=== PATIENT | female | born 1945 | race Caucasian/White ===

== ENCOUNTER 2020-11-23 13:13 | Inpatient (IN) | payer OTHER, MEDICAID, SELFPAY ==
[~2020-11-23] VITALS: Ht 142.2 cm; Wt 133.4 kg
[~2020-11-23 13:13] MED LIST: ACET-8757 PO; AMLO10TA PO; ASPI-1856 PO; ATOR20TA PO; BACL10TA4 PO; BENA5TAB7 PO; BUME1TAB PO; CARV12.52 PO; DIT5 PO; FERR-21 PO; GABA800T6 PO; GLIP1TAB40 PO; INSU10SU6 SUBQ; METO10TA PO; MULT-2112 PO; PAX20 PO; POTA8CAP4 PO; RIVA15TA1 PO; TRAZ-343 PO
[2020-11-23 13:19] VITALS: BP 138/75
--- NOTE | 2020-11-23 14:35 | NUR ---
75 Y/O F BIB DAUGHTER FROM HOME, PATIENT PRESENTS TO ED WITH ABD PAIN FOR 1 YEAR WITH DARK RED BLOOD IN STOOL THIS MORNING. PT DAUGHTER STATES SHE WAS INFORMED BY HER PCP TO COME TO ER FOR "INTERNAL BLEEDING". DENIES N/V/D; SKIN IS PINK/WARM/DRY; AAOX2 UNABLE TO AMBULATE, BOWEL SOUNDS X3 NORMOACTIVE IN RLQ, RUQ AND LUQ, HYPOACTIVE IN LLQ; LUNGS CLEAR BL; HR EVEN AND REGULAR; PT DENIES ANY FEVER, CP, SOB, OR COUGH AT THIS TIME; PATIENT STATES NO PAIN AT THIS TIME; VSS; PATIENT POSITIONED FOR COMFORT; HOB ELEVATED; BEDRAILS UP X2; BED DOWN. ER MD MADE AWARE OF PT STATUS. PMH: DM2, HTN, HYPERLIPIDEMIA ALLERGY: "YELLOW DYE", COMPAZINE, PENICILLIN MED: COMPLIANT, DAUGHTER HAS LIST OF MEDICATIONS.
[2020-11-23 16:05] LABS: BASOPHILS # (AUTO) 0.3 K/uL (0.00-0.22); BASOPHILS % (AUTO) 2.7 % (0.0-2.0); EOSINOPHILS # (AUTO) 0.3 K/uL (0-0.4); EOSINOPHILS % (AUTO) 2.4 % (0.0-4.0); HEMATOCRIT 30.1 % (36-48); HEMOGLOBIN 10.1 g/dL (12.0-16.0); LYMPHOCYTES # (AUTO) 3.8 K/uL (2.5-16.5); LYMPHOCYTES % (AUTO) 34.6 % (20.5-51.1); MEAN CORPUSCULAR HEMOGLOBIN 31 pg (27-31); MEAN CORPUSCULAR HGB CONC 34 g/dL (33-37); MEAN CORPUSCULAR VOLUME 92.1 fL (80-94); MONOCYTES # (AUTO) 0.7 K/uL (0.8-1.0); MONOCYTES % (AUTO) 6.5 % (1.7-9.3); NEUTROPHILS # (AUTO) 5.9 K/uL (1.8-7.7); NEUTROPHILS % (AUTO) 53.8 % (42.2-75.2); PLATELET COUNT (AUTO) 302 K/uL (140-450); RED BLOOD CELL COUNT(AUTO) 3.27 MIL/uL (4.20-5.40); RED CELL DISTRIBUTION WIDTH 14.4 % (11.6-13.7)
[2020-11-23 16:18] LABS: ALBUMIN 3.2 g/dL (3.4-5.0); ANION GAP 7.9 (8-16); ASPARTATE AMINOTRANSFERASE 23 U/L (15-37); CARBON DIOXIDE 33.3 mmol/L (21-32); CHLORIDE 103 mmol/L (98-107); CREATININE 2.1 mg/dL (0.6-1.3); GLUCOSE 116 mg/dL (74-106); POTASSIUM 4.2 mmol/L (3.5-5.1); SODIUM SERUM 140 mmol/L (136-145); TOTAL BILIRUBIN 0.1 mg/dL (0.0-1.0); UREA NITROGEN, BLOOD 57 mg/dL (7-18)
--- NOTE | 2020-11-23 17:34 | NUR ---
PARAS WAS SWABBED AND SENT TO LAB.
[2020-11-23] MEDS ORDERED: MORPHINE SULFATE 2 MG/ML SYR IVP PRN (18:10)
[2020-11-23] MEDS ORDERED: POTASSIUM CHLORIDE 10 MEQ TABER PO PRN (18:10)
[2020-11-23] MEDS ORDERED: DOCUSATE SODIUM 100 MG GELCAP PO PRN (18:10)
[2020-11-23] MEDS ORDERED: POTASSIUM CHLORIDE 40 MEQ, LIDOCAINE MPF 1% 25 MG in NACL 0.9% 250 ML IV PRN (18:10)
[2020-11-23] MEDS ORDERED: MAG SULF 2000 MG/WATER PREMIX 50 ML IV PRN (18:10)
[2020-11-23] MEDS ORDERED: ONDANSETRON 4 MG/2 ML VIAL IM/IVP PRN (18:10)
--- NOTE | 2020-11-23 19:03 | NUR ---
URINE COLLECTED AND GIVEN TO CHRISTIAN IN LAB
--- NOTE | 2020-11-23 19:15 | NUR ---
REPORT RECIEVED FROM KEMAR MORENO FOR CONTINUITY OF CARE.
[2020-11-23 19:29] LABS: APPEARANCE,URINE CLEAR (CLEAR); BILIRUBIN,URINE NEGATIVE (NEGATIVE); BLOOD, URINE NEGATIVE (NEGATIVE); COLOR,URINE YELLOW (YELLOW); LEUKOCYTE ESTERASE ,URINE NEGATIVE (NEGATIVE); NITRITE, URINE NEGATIVE (NEGATIVE); PH,URINE 5.5 (5.0-9.0); UGLUCOSE NEGATIVE (NEGATIVE)
[2020-11-23] MEDS: PANTOPRAZOLE 40 MG INJ VIAL IVP SCH (19:30)
--- NOTE | 2020-11-23 19:45 | NUR ---
[facility] PERFORMED, NEW SHEET AND WARM BLANKET PROVIDED. DAUGHTER AT BEDSIDE FOR ASSIST.
[2020-11-23] MEDS: NACL 0.9% 1,000 ML IV SCH (19:55)
--- NOTE | 2020-11-23 20:05 | NUR ---
PT CONNECTED TO SENIOR INFORMATION SECURITY CONSULTANT. VSS AT THIS TIME.
--- NOTE | 2020-11-23 20:50 | NUR ---
CALLED KEMAR PEGUERO. REQUESTING CALL BACK IN 10 MIN D/T ADMINISTERING MEDICATIONS. WILL CALL BACK.
--- NOTE | 2020-11-23 20:59 | NUR ---
CALLED SUDHIR AGAIN X2, NO ANSWER.
--- NOTE | 2020-11-23 21:05 | NUR ---
CALLED KEMAR PEGUERO FOR ADMIT. NO ANSWER.
[2020-11-23] MEDS ORDERED: ALBUTEROL SULFATE/IPRATROPIU 3 ML SOL IH PRN (21:10)
--- NOTE | 2020-11-23 21:15 | NUR ---
PT TAKEN TO TELE 121B VIA JOSE WITH LUDWIG REINOSO AND NARESH RN. SUDHIR RN AT BEDSIDE TO RECIEVE PT.
--- NOTE | 2020-11-23 21:20 | NUR ---
ADMITPatient will be admitted to care of MD ILANA. Admited to TELE. Will go to room 121B. Belongings list completed. Report to KEMAR PEGUERO ON THE FLOOR AT BEDSIDE.
--- NOTE | 2020-11-23 22:00 | NUR ---
RECEIVED REPORT FROM BETTY RODRIGUEZ RN FOR ADMIT TO [facility] ROOM 121B. PT ARRIVED VIA GURNEY AAOX3, UNABLE TO AMBULATE, BASELINE. NO APPARENT S/S OF ACUTE DISTRESS. BREATHING EVEN AND UNLABORED ON 2L NC WITH O2 SAT OF 100%. NO C/O CP, SOB OR PAIN. L HAND 22G INTACT/PATENT. POC AND WHITE COMMUNICATION BOARD UPDATED. BED IN LOW/LOCKED POSITION. CALL LIGHT WITHIN REACH. PT ENCOURAGED TO CALL FOR ANY NEEDS/ASSISTANCE. WILL CONTINUE TO MONITOR.
[2020-11-23 23:32] VITALS: BP 134/66
[2020-11-24] VITALS: BP 133/52
[2020-11-24 04:00] VITALS: BP 143/56
[2020-11-24 06:32] LABS: BASOPHILS # (AUTO) 0.1 K/uL (0.00-0.22); BASOPHILS % (AUTO) 0.7 % (0.0-2.0); EOSINOPHILS # (AUTO) 0.3 K/uL (0-0.4); EOSINOPHILS % (AUTO) 2.5 % (0.0-4.0); HEMATOCRIT 32.6 % (36-48); HEMOGLOBIN 10.9 g/dL (12.0-16.0); LYMPHOCYTES # (AUTO) 3.8 K/uL (2.5-16.5); LYMPHOCYTES % (AUTO) 31.6 % (20.5-51.1); MEAN CORPUSCULAR HEMOGLOBIN 31 pg (27-31); MEAN CORPUSCULAR HGB CONC 33 g/dL (33-37); MONOCYTES # (AUTO) 0.9 K/uL (0.8-1.0); MONOCYTES % (AUTO) 7.8 % (1.7-9.3); NEUTROPHILS # (AUTO) 6.8 K/uL (1.8-7.7); NEUTROPHILS % (AUTO) 57.4 % (42.2-75.2); PLATELET COUNT (AUTO) 341 K/uL (140-450); RED BLOOD CELL COUNT(AUTO) 3.55 MIL/uL (4.20-5.40); RED CELL DISTRIBUTION WIDTH 14.4 % (11.6-13.7); WHITE BLOOD COUNT (AUTO) 11.9 K/uL (4.8-10.8)
--- NOTE | 2020-11-24 06:54 | NUR ---
REPORT GIVEN TO PIPO REINOSO FOR CONTINUITY OF CARE. PT SITTING UP AAO3. NO APPARENT S/S OF ACUTE DISTRESS. BREATHING EVEN AND UNLABORED. BED IN LOW/LOCKED POSITION. CALL LIGHT WITHIN REACH. ALL NEEDS MET AT THIS TIME.
[2020-11-24 07:05] LABS: ANION GAP 9.2 (8-16); CARBON DIOXIDE 31.8 mmol/L (21-32); CHLORIDE 103 mmol/L (98-107); CREATININE 1.9 mg/dL (0.6-1.3); GLUCOSE 173 mg/dL (74-106); SODIUM SERUM 140 mmol/L (136-145); UREA NITROGEN, BLOOD 51 mg/dL (7-18)
--- NOTE | 2020-11-24 08:17 | NUR ---
RCV'D PT ON ROOM AIR. SPO2 94% CLEAR BREATH SOUNDS. BIPAP AT BEDSIDE STANDBY FOR SOB. WILL CONTINUE TO MONITOR.
--- NOTE | 2020-11-24 08:59 | NUR ---
PATIENT HAS BEEN SCREENED AND CATEGORIZED MODERATE NUTRITION RISK. PATIENT WILL BE SEEN WITHIN 3-5 DAYS OF ADMISSION. 11/26/20 11/28/[address]
[2020-11-24] MEDS: BENAZEPRIL 5 MG TAB PO SCH (09:00)
[2020-11-24] MEDS: PARoxetine 20 MG TAB PO SCH (09:00)
[2020-11-24] MEDS: carvediloL 12.5 MG TAB PO SCH ×2 (09:00→20:28)
[2020-11-24] MEDS: BUMETANIDE 1 MG TAB PO SCH (09:00)
[2020-11-24] MEDS: OXYBUTYNIN 5 MG TAB PO SCH ×2 (09:00→20:28)
[2020-11-24] MEDS: metOLazone 5 MG TAB PO SCH (09:00)
[2020-11-24] MEDS: amLODIPine 5 MG TAB PO SCH (13:07)
[2020-11-24] MEDS: PANTOPRAZOLE 40 MG INJ VIAL IVP SCH (13:07)
[2020-11-24] MEDS: HYDROcodone/APAP 5/325 MG 1 TAB TAB PO PRN ×2 (13:11→16:52)
[2020-11-24] MEDS: MULTIVITAMIN/MINERALS 1 TAB PO SCH (16:56)
[2020-11-24] MEDS: NACL 0.9% 1,000 ML IV SCH (18:45)
--- NOTE | 2020-11-24 19:30 | NUR ---
RECIEVED BEDSIDE ENDORSEMENT FROM DAY SHIFT RN, PT SITTING UP ON BED RESTING, A&OX1/2, ALBE TO MAKE NEEDS KNOWN AND FOLLOWS SIMPLE COMMANDS, AFEBRILE, VSS, ON NC 2L/MIN, ABD SOFT AND NON TENDER TO TOUCH, SKIN WARM DRY AND NON INTACT/SEE WOUND ASSESSMENT, MOSHE 20 G PIV SALINE LOCKED, L ARM AV SHUNT IN PLACE, PT SHOWING NO SIGNS OF ACUTE DISTRESS, SAFETY MEASURES IN PLACE, WILL CONTINUE WITH CURRENT POC
[2020-11-24 20:00] VITALS: BP 152/78
[2020-11-24 20:10] VITALS: BP 156/82
[2020-11-24] MEDS: ATORVASTATIN 20 MG TAB PO SCH (20:28)
--- NOTE | 2020-11-24 20:29 | NUR ---
ADMINISTERED 2100H MEDICATIONS PER MD ORDERS
[2020-11-24] MEDS ORDERED: traZODone 50 MG TAB PO PRN (21:00)
[2020-11-24] MEDS ORDERED: traZODone 50 MG TAB PO SCH (21:00)
--- NOTE | 2020-11-24 23:11 | NUR ---
PT CHANGED BACK TO NC 2L/MIN, UNABLE TO TOLERATE BIPAP AND KEEPS REMOVING IT, RT AWARE AND AT BEDSIDE
--- NOTE | 2020-11-24 23:18 | NUR ---
2121 PLACED PATIENT ON BIPAP. SEE RT NOTES
--- NOTE | 2020-11-24 23:19 | NUR ---
2300 PATIENT TOOK OFF BIPAP. RN SAID PATIENT DOES NOT WANT TO WEAR IT. BIPAP IS STANDBY PATIENTS BED
[2020-11-25] VITALS: BP 149/70
--- NOTE | 2020-11-25 00:28 | NUR ---
PT APPEARS TO BE ASLEEP AND SHOWING NO SIGNS OF ACUTE DISTRESS
[2020-11-25 04:00] VITALS: BP 157/77
[2020-11-25 06:01] LABS: BASOPHILS # (AUTO) 0.1 K/uL (0.00-0.22); BASOPHILS % (AUTO) 0.6 % (0.0-2.0); EOSINOPHILS # (AUTO) 0.2 K/uL (0-0.4); EOSINOPHILS % (AUTO) 1.7 % (0.0-4.0); HEMATOCRIT 32.6 % (36-48); HEMOGLOBIN 11.1 g/dL (12.0-16.0); LYMPHOCYTES # (AUTO) 4.4 K/uL (2.5-16.5); MEAN CORPUSCULAR HEMOGLOBIN 31 pg (27-31); MEAN CORPUSCULAR HGB CONC 34 g/dL (33-37); MEAN CORPUSCULAR VOLUME 91.3 fL (80-94); MONOCYTES # (AUTO) 0.9 K/uL (0.8-1.0); MONOCYTES % (AUTO) 7.2 % (1.7-9.3); NEUTROPHILS # (AUTO) 7.3 K/uL (1.8-7.7); NEUTROPHILS % (AUTO) 56.5 % (42.2-75.2); PLATELET COUNT (AUTO) 337 K/uL (140-450); RED BLOOD CELL COUNT(AUTO) 3.57 MIL/uL (4.20-5.40); WHITE BLOOD COUNT (AUTO) 12.9 K/uL (4.8-10.8)
[2020-11-25 06:03] LABS: ANION GAP 14.1 (8-16); CARBON DIOXIDE 28.1 mmol/L (21-32); CHLORIDE 98 mmol/L (98-107); CREATININE 1.5 mg/dL (0.6-1.3); GLUCOSE 287 mg/dL (74-106); POTASSIUM 4.2 mmol/L (3.5-5.1); SODIUM SERUM 136 mmol/L (136-145); UREA NITROGEN, BLOOD 40 mg/dL (7-18)
--- NOTE | 2020-11-25 07:20 | NUR ---
RECEIVED BEDSIDE REPORT FROM [facility] HOME NURSE FOR CONTINUITY OF CARE. PT IS AWAKE AND ALERT. PERIODS OF CONFUSION NOTED. PT IS ON 2L O2 NC WITH BREATHING UNLABORED. PT IS AMBULATORY WITH ASSISTANCE. SKIN IS WARM, DRY, AND INTACT. IV IS IN THE LEFT HAND 22 GAUGE RUNNING NS AT 40 ML PER HOUR PER ORDER. PT IS STABLE AT THIS TIME. PLAN OF CARE DISCUSSED.
--- NOTE | 2020-11-25 07:29 | NUR ---
ENDORSED TO DAY SHIFT RN FOR CONTINUITY OF CARE
[2020-11-25 08:00] VITALS: BP 141/73
--- NOTE | 2020-11-25 08:59 | NUR ---
SPOKE TO THEO, DAUGHTER, AND INFORMED HER OF THE CONDITION OF THE PT. ALL QUESTIONS ANSWERED.
[2020-11-25] MEDS: PARoxetine 20 MG TAB PO SCH (09:45)
[2020-11-25] MEDS: MULTIVITAMIN/MINERALS 1 TAB PO SCH (09:46)
[2020-11-25] MEDS: amLODIPine 5 MG TAB PO SCH (09:46)
[2020-11-25] MEDS: metOLazone 5 MG TAB PO SCH (09:47)
[2020-11-25] MEDS: carvediloL 12.5 MG TAB PO SCH ×2 (09:48→20:49)
[2020-11-25] MEDS: BUMETANIDE 1 MG TAB PO SCH (09:48)
[2020-11-25] MEDS: OXYBUTYNIN 5 MG TAB PO SCH ×2 (09:49→20:49)
[2020-11-25] MEDS: PANTOPRAZOLE 40 MG INJ VIAL IVP SCH (09:49)
[2020-11-25] MEDS: BENAZEPRIL 5 MG TAB PO SCH (09:53)
[2020-11-25] MEDS: ACETAMINOPHEN 325 MG TAB PO PRN ×2 (09:58→16:33)
--- NOTE | 2020-11-25 09:58 | NUR ---
PT STATED SHE HAD A HEADACHE. PT WAS GIVEN TYLENOL PRN FOR HEADACHE. WILL MONITOR PT.
--- NOTE | 2020-11-25 10:27 | NUR ---
PT PULLED OUT IV ACCIDENTLY WITH RAPID MOVEMENT. BLEEDING WAS CONTROLLED. NEW IV WAS PLACED ON THE RIGHT HAND 22 GAUGE. IV IS PATENT AND FLUSHING WELL. PT TOLERATED THIS WELL.
--- NOTE | 2020-11-25 10:29 | NUR ---
SPOKE TO DR. BEACH ABOUT ELEVATED GLUCOSE ON MORNING BLOOD DRAW. INQUIRED ABOUT BLOOD GLUCOSE CHECKS AND DR. BEACH ORDERED BLOOD GLUCOSE CHECKS ACHS WITH HUMALOG SLIDING SCALE STARTING AT 1130 AM.
[2020-11-25] MEDS ORDERED: DEXTROSE 50% 50 ML SYR IVP PRN (10:30)
[2020-11-25 12:00] VITALS: BP 144/65
[2020-11-25] MEDS: BLOOD GLUCOSE MONITORING 1 DEV DEV FS SCH ×3 (12:49→20:57)
[2020-11-25] MEDS: INSULIN LISPRO SLIDING SCALE 100 UNITS/ML VIAL SUBQ PRN ×3 (12:49→21:08)
--- NOTE | 2020-11-25 12:50 | NUR ---
BS READING IS 349. PT WAS GIVEN INSULIN HUMALOG, 8 UNITS PER SLIDING SCALE. MEDICATION EDUCATION WAS PROVIDED AND PT VERBALIZED UNDERSTANDING.
--- NOTE | 2020-11-25 14:00 | NUR ---
NEPHEWDANNA, ON THE PHONE ASKING FOR INFORMATION ABOUT PT. ASKED PT FOR VERBAL CONSENT TO GIVE INFORMATION TO DANNA AND SHE AGREED. UPDATED HIM ON CONDITION OF PT. QUESTIONS ANSWERED.
--- NOTE | 2020-11-25 14:30 | NUR ---
PT IS SITTING UP IN BED. PT WAS ASSISTED TO RESTROOM. NO DISTRESS NOTED. GAIT WAS UNSTEADY. PT VOIDED, NO BOWEL MOVEMENT NOTED. WILL CONTINUE TO MONITOR PT.
--- NOTE | 2020-11-25 15:00 | NUR ---
DR. QUIROZ AT BEDSIDE ASSESSING PT. SPOKE TO PT AND DAUGHTER, THEO, ABOUT PROCEDURE COLONOSCOPY. FAMILY AND PT CONSENTED TO PROCEDURE. RISKS AND QUESTIONS ANSWERED. CONSENT WAS SIGNED.
[2020-11-25 16:00] VITALS: BP 156/76
--- NOTE | 2020-11-25 16:00 | NUR ---
DAUGHTER, THEO, AT BEDSIDE. ASKED FOR NO INFORMATION TO BE GIVEN TO ANY MEMBER OF THE FAMILY UNLESS IT IS HERSELF OR JEAN LOPEZ. ALSO ASKED FOR NO VISITORS TO BE ALLOWED EXCEPT JEAN AND THEO LOPEZ. CALLED [employer] AND INFORMED THEM OF THIS INFORMATION AND THEY STATED THEY WOULD PUT IT IN HER CHART.
--- NOTE | 2020-11-25 16:33 | NUR ---
PATIENT COMPLAINED OF DICKNES 3/10. ADMINISTERED PRN PAIN MEDICATIONS PER MD ORDERED.
[2020-11-25] MEDS: LORazepam 0.5 MG TAB PO PRN (18:19)
[2020-11-25] MEDS: NACL 0.9% 1,000 ML IV SCH (18:34)
--- NOTE | 2020-11-25 18:58 | NUR ---
BS READING IS 264. HUMALOG INSULIN, 6 UNITS, GIVEN PER SLIDING SCALE.
--- NOTE | 2020-11-25 19:30 | NUR ---
ENDORSED PT TO LAYER OUT PLATE GLASS NURSE FOR CONTINUITY OF CARE. PT IS STABLE AT THIS TIME. PLAN OF CARE DISCUSSED.
[2020-11-25 20:00] VITALS: BP 173/83
--- NOTE | 2020-11-25 20:05 | NUR ---
PTS FAMILY STATE SHE IS NOT READY FOR BIPAP - GAVE NUMBER TO RN FOR WHEN WE CAN PLACED FOR NOC USE.
[2020-11-25] MEDS: ATORVASTATIN 20 MG TAB PO SCH (20:49)
--- NOTE | 2020-11-26 02:28 | NUR ---
After PM medication were administered, pt was placed on BIPAP. She has kept it on until now, when she has decided to remove it. We have placed on O22 liters. Covered her up comfortably. She is now sleeping without any problem. We have tried to reach Eda to let her know that pt is no longer on BIPAP, but she has not picked up her phone. Will continue to monitor.
--- NOTE | 2020-11-26 03:30 | NUR ---
FOUND PT ON NASAL CANNULA - PT HAD PULLED OFF BIPAP MASK AND FOUND IT ON FLOOR. RN PLACED PT ON NASAL CANNULA SINCE PT DID NOT WANT TO WEAR MASK AT THIS TIME.
[2020-11-26 04:00] VITALS: BP 158/73
[2020-11-26 05:58] LABS: ANION GAP 13.6 (8-16); CARBON DIOXIDE 28.4 mmol/L (21-32); CHLORIDE 101 mmol/L (98-107); CREATININE 1.4 mg/dL (0.6-1.3); GLUCOSE 250 mg/dL (74-106); SODIUM SERUM 139 mmol/L (136-145); UREA NITROGEN, BLOOD 34 mg/dL (7-18)
[2020-11-26 06:19] LABS: BASOPHILS # (AUTO) 0.1 K/uL (0.00-0.22); BASOPHILS % (AUTO) 0.6 % (0.0-2.0); EOSINOPHILS # (AUTO) 0.2 K/uL (0-0.4); EOSINOPHILS % (AUTO) 1.8 % (0.0-4.0); HEMATOCRIT 33.8 % (36-48); HEMOGLOBIN 11.3 g/dL (12.0-16.0); LYMPHOCYTES # (AUTO) 4.5 K/uL (2.5-16.5); MEAN CORPUSCULAR HEMOGLOBIN 31 pg (27-31); MEAN CORPUSCULAR HGB CONC 34 g/dL (33-37); MEAN CORPUSCULAR VOLUME 91.2 fL (80-94); MONOCYTES # (AUTO) 0.9 K/uL (0.8-1.0); MONOCYTES % (AUTO) 7.5 % (1.7-9.3); NEUTROPHILS # (AUTO) 6.4 K/uL (1.8-7.7); NEUTROPHILS % (AUTO) 53.1 % (42.2-75.2); PLATELET COUNT (AUTO) 334 K/uL (140-450); RED CELL DISTRIBUTION WIDTH 14.2 % (11.6-13.7); WHITE BLOOD COUNT (AUTO) 12.1 K/uL (4.8-10.8)
--- NOTE | 2020-11-26 07:25 | NUR ---
PT RESTING IN BED NO S/SX OF DISTRESS AT THIS TIME. ALL SAFETY MEASURES ARE IN PLACE.
--- NOTE | 2020-11-26 07:50 | NUR ---
PT ASSISTED WITH BED THOMASON. ONE LARGE B, BROWN . FOBT COLLECTED
[2020-11-26] MEDS: BLOOD GLUCOSE MONITORING 1 DEV DEV FS SCH ×4 (07:54→20:45)
[2020-11-26] MEDS: INSULIN LISPRO SLIDING SCALE 100 UNITS/ML VIAL SUBQ PRN ×2 (07:57→12:15)
[2020-11-26] MEDS: PARoxetine 20 MG TAB PO SCH (08:22)
[2020-11-26] MEDS: amLODIPine 5 MG TAB PO SCH (08:23)
[2020-11-26] MEDS: metOLazone 5 MG TAB PO SCH (08:23)
[2020-11-26] MEDS: OXYBUTYNIN 5 MG TAB PO SCH ×2 (08:23→20:36)
[2020-11-26] MEDS: carvediloL 12.5 MG TAB PO SCH ×2 (08:24→20:36)
[2020-11-26] MEDS: BUMETANIDE 1 MG TAB PO SCH (08:24)
[2020-11-26] MEDS: MULTIVITAMIN/MINERALS 1 TAB PO SCH (08:24)
[2020-11-26] MEDS: BENAZEPRIL 5 MG TAB PO SCH (08:28)
--- NOTE | 2020-11-26 08:28 | NUR ---
MEDICATIONS GIVEN PER MD ORDER. PT EDUCATED . REINFORCEMENT NEEDED.
[2020-11-26] MEDS: PANTOPRAZOLE 40 MG INJ VIAL IVP SCH (08:36)
--- NOTE | 2020-11-26 08:38 | NUR ---
PT ASSISTED WITH BED THOMASON
[2020-11-26] MEDS: SUPREP BOWEL PREP KIT 354 ML SOLN.RECON PO SCH ×2 (10:00→18:19)
[2020-11-26] MEDS: bisacodyL 5 MG TABEC PO SCH ×2 (10:00→20:35)
--- NOTE | 2020-11-26 10:00 | NUR ---
PT STARTED BOWEL PREP. PT DRANK 90% WILL REINFORCE. PT EDUCATED REINFORCEMENT NEEDED
--- NOTE | 2020-11-26 10:20 | NUR ---
PT ASSISTED TO RESTROOM PT TOLERATED WELL
--- NOTE | 2020-11-26 11:30 | NUR ---
BG 310 PRN MEDICATION ADMINISTERED PER MD ORDER. PT EDUCATED VERBALIZED UNDERSTANDING
[2020-11-26 12:00] VITALS: BP 131/80
--- NOTE | 2020-11-26 12:00 | NUR ---
pt changed bm loose and light green.
--- NOTE | 2020-11-26 13:50 | NUR ---
PT CHANGED, BM LIQUID GREEN. ALL SAFETY MEASURES IN PLACE. BOWEL PREP FINISHED PT TOLERATED WELL DENIES NAUSEA AND VOMITING
--- NOTE | 2020-11-26 15:10 | NUR ---
AT BEDSIDE . PT RESTING IN BED EYES CLOSED BREATHING SYMMETRICAL AND UNLABORED. NO S/SX OF DISTRESS AT THIS TIME.
--- NOTE | 2020-11-26 17:53 | NUR ---
DAUGHTER AT BEDSIDE. PT PROVIDED NEW LINEN , CHANGED AND REPOSITIONED
[2020-11-26] MEDS: NACL 0.9% 1,000 ML IV SCH (18:19)
--- NOTE | 2020-11-26 18:19 | NUR ---
PT ON COMMODE. 2ND DOSE OF BOWEL PREP GIVEN. PT DRANK TOLERATED WELL. DENIES NAUSEA OR VOMITING
--- NOTE | 2020-11-26 19:27 | NUR ---
PT ENDORSED TO AREA FORESTER RN. PT RESTING IN COMMODE. PT IN STABLE CONDITION, DAUGHTER AT BEDSIDE.
[2020-11-26] MEDS: LORazepam 0.5 MG TAB PO PRN (19:31)
[2020-11-26 20:00] VITALS: BP 127/58
[2020-11-26] MEDS: ATORVASTATIN 20 MG TAB PO SCH (20:38)
[2020-11-26] MEDS ORDERED: INSULIN LISPRO 100 UNITS/ML VIAL SUBQ ONE (21:00)
[2020-11-27 04:00] VITALS: BP 151/75
--- NOTE | 2020-11-27 04:46 | NUR ---
0200 PATIENT TOOK BIPAP OFF. DID NOT WANT TO WEAR IT ANYMORE. PATIENT ON 2LNC
--- NOTE | 2020-11-27 05:14 | NUR ---
Assumed care last night. She underwent bowel prep. Daughter was at the bed side. She was hands on in taking care of the patient. PM medications were administered. Meds were well tolerated. Thereafter, RT placed her on the BIPAP. Around 0220 she could not tolerate the BIPAP anymore. We placed her on 2 liters via nasal cannula. Tolerated well. Was able to turn self. Will endorse care to AM RN.
[2020-11-27 06:51] LABS: BASOPHILS # (AUTO) 0.1 K/uL (0.00-0.22); BASOPHILS % (AUTO) 0.6 % (0.0-2.0); EOSINOPHILS # (AUTO) 0.1 K/uL (0-0.4); HEMATOCRIT 33.5 % (36-48); HEMOGLOBIN 11.2 g/dL (12.0-16.0); LYMPHOCYTES # (AUTO) 4.4 K/uL (2.5-16.5); LYMPHOCYTES % (AUTO) 35.8 % (20.5-51.1); MEAN CORPUSCULAR HEMOGLOBIN 31 pg (27-31); MEAN CORPUSCULAR HGB CONC 34 g/dL (33-37); MEAN CORPUSCULAR VOLUME 91.3 fL (80-94); MONOCYTES # (AUTO) 0.8 K/uL (0.8-1.0); MONOCYTES % (AUTO) 6.6 % (1.7-9.3); NEUTROPHILS # (AUTO) 6.9 K/uL (1.8-7.7); PLATELET COUNT (AUTO) 367 K/uL (140-450); RED BLOOD CELL COUNT(AUTO) 3.67 MIL/uL (4.20-5.40); RED CELL DISTRIBUTION WIDTH 14.4 % (11.6-13.7); WHITE BLOOD COUNT (AUTO) 12.4 K/uL (4.8-10.8)
[2020-11-27] MEDS: BLOOD GLUCOSE MONITORING 1 DEV DEV FS SCH ×4 (07:10→20:44)
[2020-11-27] MEDS: INSULIN LISPRO SLIDING SCALE 100 UNITS/ML VIAL SUBQ PRN ×4 (07:13→20:46)
[2020-11-27 07:25] LABS: ANION GAP 13.3 (8-16); CARBON DIOXIDE 28.5 mmol/L (21-32); CHLORIDE 102 mmol/L (98-107); CREATININE 1.4 mg/dL (0.6-1.3); GLUCOSE 291 mg/dL (74-106); POTASSIUM 3.8 mmol/L (3.5-5.1); SODIUM SERUM 140 mmol/L (136-145); UREA NITROGEN, BLOOD 30 mg/dL (7-18)
--- NOTE | 2020-11-27 07:30 | NUR ---
PT RECEIVED FROM QUALITY ENGINEER MEDICAL DEVICE RN. PT RESTING IN BED COMFORTABLY. NO S/SX OF DISTRESS AT THIS TIME. ALL SAFETY MEASURES ARE IN PLACE.
--- NOTE | 2020-11-27 07:57 | NUR ---
PT REMAINS NPO SINCE MIDNIGHT PER REPORT. PT HAS GREEN LIQUID STOOLS
[2020-11-27] MEDS: BENAZEPRIL 5 MG TAB PO SCH (09:00)
[2020-11-27] MEDS: MULTIVITAMIN/MINERALS 1 TAB PO SCH (09:00)
[2020-11-27] MEDS: PARoxetine 20 MG TAB PO SCH (09:28)
[2020-11-27] MEDS: PANTOPRAZOLE 40 MG INJ VIAL IVP SCH (09:28)
[2020-11-27] MEDS: amLODIPine 5 MG TAB PO SCH (09:29)
[2020-11-27] MEDS: metOLazone 5 MG TAB PO SCH (09:29)
[2020-11-27] MEDS: BUMETANIDE 1 MG TAB PO SCH (09:29)
[2020-11-27] MEDS: OXYBUTYNIN 5 MG TAB PO SCH ×2 (09:30→21:09)
[2020-11-27] MEDS: carvediloL 12.5 MG TAB PO SCH ×2 (09:30→21:09)
--- NOTE | 2020-11-27 09:36 | NUR ---
BTS BP 169/84 BP MEDS GIVEN PER MD ORDER. PT EDUCATED TOLERATED WELL. PT REMAINS NPO
--- NOTE | 2020-11-27 09:36 | NUR ---
PT BOWEL IS YELLOW LIQUID NO SEDIMENTS AT THIS TIME
--- NOTE | 2020-11-27 11:30 | NUR ---
BG ASSESSED BG 291, PRN MEDICATION GIVEN PER MD ORDER. PT LEFT UNIT FOR PROCEDURE
[2020-11-27] MEDS ORDERED: MIDAZOLAM 5 MG/5 ML VIAL ONE (11:40)
[2020-11-27] MEDS ORDERED: fentaNYL citrate 0.05 MG/ML VIAL ONE (11:40)
[2020-11-27 12:00] VITALS: BP 159/64
[2020-11-27] MEDS ORDERED: MIDAZOLAM 2 MG/2 ML VIAL IVP ONE (12:05)
[2020-11-27] MEDS ORDERED: fentaNYL citrate 0.05 MG/ML VIAL IVP ONE (12:05)
[2020-11-27] MEDS: metroNIDAZOLE 500 MG/NS PREMIX 100 ML IV SCH ×2 (13:16→21:09)
[2020-11-27] MEDS: HYDROcodone/APAP 5/325 MG 1 TAB TAB PO PRN (13:17)
--- NOTE | 2020-11-27 13:20 | NUR ---
PT BACK FROM PROCEDURE PT LINEN CHANGED PT GOWN CHANGED. DAUGHTER AT BEDSIDE
--- NOTE | 2020-11-27 15:10 | NUR ---
PT RESTING IN BED. PT SOILED. WHOLE BED CHANGED PT UP IN CHAIR TOLERATED WELL . NEW GOWN PROVIDED. BED BATH PROVIDED. DAUGHTER AT BEDSIDE. ALL SAFETY MEASURES IN PLACE
--- NOTE | 2020-11-27 16:58 | NUR ---
BG 293 . PRN MEDICATION GIVEN PER MD ORDER. PT EDUCATED AND VERBALIZED UNDERSTANDING . DAUGHTER AT BEDSIDE.
[2020-11-27] MEDS: NACL 0.9% 1,000 ML IV SCH (18:16)
--- NOTE | 2020-11-27 18:54 | NUR ---
PT RESTING AT EDGE OF TABLE EATING DINNER. FAMILY AT BEDSIDE. NO S/SX OF DISTRESS AT THIS TIME
--- NOTE | 2020-11-27 19:49 | NUR ---
PT ENDORSED TO RN FOR CONTINUITY OF CARE. PT IN STABLE CONDITION
[2020-11-27 20:00] VITALS: BP 161/68
--- NOTE | 2020-11-27 20:00 | NUR ---
PATIENT RECEIVED IN BED AWAKE AND ALERT, NO S/S OF DISTRESS, V/S WNL. FAMILY AT THE BEDSIDE.
--- NOTE | 2020-11-27 21:00 | NUR ---
ALL DUE MEDS GIVEN, TRAZADONE AND ATIVAN WAS GIVEN WELL, PATIENT LATER WAS PUT ON BIPAP, TOLERATING IT WELL.
[2020-11-27] MEDS: ATORVASTATIN 20 MG TAB PO SCH (21:09)
[2020-11-27] MEDS: LORazepam 0.5 MG TAB PO PRN (21:10)
--- NOTE | 2020-11-28 | NUR ---
PATIENT WAS CALMLY ASLEEP
--- NOTE | 2020-11-28 02:00 | NUR ---
PATIENT WOKE UP TAKES OFF HER BIPAP WHICH CAUSED THE ALARM, HELPED TO TRANSFER TO BEDSIDE COMODE, WENT NUMBER 1, WENT BACK TO BED ON BIPAP, TOLERATING WELL.
[2020-11-28 04:00] VITALS: BP 154/74
--- NOTE | 2020-11-28 04:15 | NUR ---
V/S SLIGHTLY ELEVATED AT 150/82 mmHg, 79, 16, DENIES PAIN
--- NOTE | 2020-11-28 04:50 | NUR ---
PATIENT TOOK OFF BIPAP MASK. DOES NOT WANT TO WEAR IT ANYMORE. PLACED BACK ON 2LNC
[2020-11-28] MEDS: metroNIDAZOLE 500 MG/NS PREMIX 100 ML IV SCH ×2 (05:35→13:43)
[2020-11-28 06:24] LABS: ANION GAP 8.5 (8-16); CARBON DIOXIDE 29.3 mmol/L (21-32); CHLORIDE 100 mmol/L (98-107); CREATININE 1.4 mg/dL (0.6-1.3); GLUCOSE 292 mg/dL (74-106); POTASSIUM 3.8 mmol/L (3.5-5.1); SODIUM SERUM 134 mmol/L (136-145); UREA NITROGEN, BLOOD 31 mg/dL (7-18)
[2020-11-28 06:33] LABS: BASOPHILS # (AUTO) 0.1 K/uL (0.00-0.22); BASOPHILS % (AUTO) 0.7 % (0.0-2.0); EOSINOPHILS # (AUTO) 0.2 K/uL (0-0.4); EOSINOPHILS % (AUTO) 1.7 % (0.0-4.0); HEMATOCRIT 31.8 % (36-48); HEMOGLOBIN 10.6 g/dL (12.0-16.0); LYMPHOCYTES # (AUTO) 4.6 K/uL (2.5-16.5); LYMPHOCYTES % (AUTO) 34.1 % (20.5-51.1); MEAN CORPUSCULAR HEMOGLOBIN 30 pg (27-31); MEAN CORPUSCULAR HGB CONC 33 g/dL (33-37); MEAN CORPUSCULAR VOLUME 90.6 fL (80-94); MONOCYTES % (AUTO) 7.8 % (1.7-9.3); NEUTROPHILS # (AUTO) 7.5 K/uL (1.8-7.7); NEUTROPHILS % (AUTO) 55.7 % (42.2-75.2); PLATELET COUNT (AUTO) 295 K/uL (140-450); RED BLOOD CELL COUNT(AUTO) 3.51 MIL/uL (4.20-5.40); RED CELL DISTRIBUTION WIDTH 14.1 % (11.6-13.7); WHITE BLOOD COUNT (AUTO) 13.4 K/uL (4.8-10.8)
[2020-11-28] MEDS: BLOOD GLUCOSE MONITORING 1 DEV DEV FS SCH ×3 (06:41→16:30)
[2020-11-28] MEDS: INSULIN LISPRO SLIDING SCALE 100 UNITS/ML VIAL SUBQ PRN ×2 (06:42→13:35)
--- NOTE | 2020-11-28 07:45 | NUR ---
REPORTS WERE GIVEN, PATIENT WAS ENDORSED.
[2020-11-28] MEDS: PANTOPRAZOLE 40 MG INJ VIAL IVP SCH (09:00)
[2020-11-28] MEDS: OXYBUTYNIN 5 MG TAB PO SCH (09:00)
[2020-11-28] MEDS: metOLazone 5 MG TAB PO SCH (09:00)
[2020-11-28] MEDS: BUMETANIDE 1 MG TAB PO SCH (09:00)
[2020-11-28] MEDS: carvediloL 12.5 MG TAB PO SCH (09:00)
[2020-11-28] MEDS: BENAZEPRIL 5 MG TAB PO SCH (09:00)
[2020-11-28] MEDS: amLODIPine 5 MG TAB PO SCH (09:00)
[2020-11-28] MEDS: PARoxetine 20 MG TAB PO SCH (09:00)
[2020-11-28] MEDS: MULTIVITAMIN/MINERALS 1 TAB PO SCH (09:00)
[2020-11-28] MEDS: HYDROcodone/APAP 5/325 MG 1 TAB TAB PO PRN (10:17)
--- NOTE | 2020-11-28 15:19 | NUR ---
11/28/20 RD INITIAL ASSESSMENT COMPLETED PLEASE REFER TO NUTRITION ASSESSMENT UNDER CARE ACTIVITY FOR ESTIMATED NUTRITIONAL NEEDS. 1. CONTINUE 60 G CCHO DIET TOLERATED 2. RD WILL F/U WITH NUTRITION EDUCATION ON CONSISTENT CARBOHYDRATE INTAKE 3. RD TO FOLLOW-UP 3-5 DAYS, MODERATE RISK LUDWIG COOPER, RD
[2020-11-28] MEDS: NACL 0.9% 1,000 ML IV SCH (15:58)
[2020-11-28 18:35] VITALS: BP 115/77
[2020-11-28 19:52] VITALS: BP 141/83
--- NOTE | 2020-11-28 20:22 | NUR ---
AT 1999 PM PT AND DYAN GIVEN D/C INSTRUCTIONS THEY VERBALIZED UNDERSTANDING OF INSTRUCTIONS , SL TAKEN OUT , PT HELPED TO DRESS , WHEELED TO PRIVATE CAR IN GOOD CONDITION .. LEFT WITH ALL HER BELONGINGS
== END 2020-11-28 20:20 | disposition home or self-care (01) | DRG 377 ==
LOC: MED 13:13 → MTU 17:24
PROVIDERS: ADMIT Hospitalist; ATTEND Hospitalist
PROC: 0DBL8ZZ Excision of Transverse Colon, Via Natural or Artificial Opening Endoscopic (ICD-10-PCS; 2020-11-27)
PROC: 0D5M8ZZ Destruction of Descending Colon, Via Natural or Artificial Opening Endoscopic (ICD-10-PCS; 2020-11-27)
PROC: 0W3P8ZZ Control Bleeding in Gastrointestinal Tract, Via Natural or Artificial Opening Endoscopic (ICD-10-PCS; principal; 2020-11-27 11:05)
DX: K55.21 Angiodysplasia of colon with hemorrhage (principal); N17.0 Acute kidney failure with tubular necrosis; I13.2 Hypertensive heart and chronic kidney disease with heart failure and with stage 5 chronic kidney disease, or end stage renal disease; E66.2 Morbid (severe) obesity with alveolar hypoventilation; Z68.44 Body mass index [BMI] 60.0-69.9, adult; I50.32 Chronic diastolic (congestive) heart failure; E11.22 Type 2 diabetes mellitus with diabetic chronic kidney disease; E11.40 Type 2 diabetes mellitus with diabetic neuropathy, unspecified; E11.51 Type 2 diabetes mellitus with diabetic peripheral angiopathy without gangrene; K76.0 Fatty (change of) liver, not elsewhere classified; K42.9 Umbilical hernia without obstruction or gangrene; Z20.822 Contact with and (suspected) exposure to COVID-19; I25.10 Atherosclerotic heart disease of native coronary artery without angina pectoris; N18.31 Chronic kidney disease, stage 3a; K63.5 Polyp of colon; E86.0 Dehydration; K64.4 Residual hemorrhoidal skin tags; D63.8 Anemia in other chronic diseases classified elsewhere; F03.90 Unspecified dementia, unspecified severity, without behavioral disturbance, psychotic disturbance, mood disturbance, and anxiety; Z86.718 Personal history of other venous thrombosis and embolism; Z88.0 Allergy status to penicillin; Z88.8 Allergy status to other drugs, medicaments and biological substances; Z91.041 Radiographic dye allergy status; Z79.899 Other long term (current) drug therapy; Z79.82 Long term (current) use of aspirin
CPT/HCPCS: 36415; 71045; 80048; 80053; 81003; 82272; 82948; 83735; 83880; 84100; 85025; 85610; 86886; 86900; 86901; 87081; 88305; 94660; 97110; 97116; 97163-GP; 99285; C9113; J1815; J2250; J3010; J3490; J7030; Q0092